=== PATIENT | female | born 1990 ===

== ENCOUNTER 2019-02-03 07:45 | Inpatient (IN) | payer OTHER ==
[~2019-02-03] VITALS: Ht 154.9 cm; Wt 1.8 kg
[2019-02-04] MEDS ORDERED: PRENATAL PLUS1 EAC1 PO (10:32)
== END 2019-02-07 16:39 | DRG 783 ==
LOC: O/R 07:45 → OB/GYN 02-04 07:45 → O/R 02-04 09:48 → OB/GYN 02-04 09:48
PROVIDERS: ADMIT Obstetrics & Gynecology
PROC: 0UB70ZZ Excision of Bilateral Fallopian Tubes, Open Approach (ICD-10-PCS; 2019-02-04)
PROC: 4A1HXCZ Monitoring of Products of Conception, Cardiac Rate, External Approach (ICD-10-PCS; 2019-02-04)
PROC: 4A033R1 Measurement of Arterial Saturation, Peripheral, Percutaneous Approach (ICD-10-PCS; 2019-02-04)
PROC: 10D00Z1 Extraction of Products of Conception, Low, Open Approach (ICD-10-PCS; principal; 2019-02-04 11:00)
DX: O82 Encounter for cesarean delivery without indication (principal); O60.14X0 Preterm labor third trimester with preterm delivery third trimester, not applicable or unspecified; O34.211 Maternal care for low transverse scar from previous cesarean delivery; O36.5930 Maternal care for other known or suspected poor fetal growth, third trimester, not applicable or unspecified; Z3A.36 36 weeks gestation of pregnancy; Z37.0 Single live birth; Z30.2 Encounter for sterilization; Z22.330 Carrier of Group B streptococcus